=== PATIENT | female | born 1950 | race Caucasian/White ===

== ENCOUNTER 2019-07-22 08:51 | Emergency (ER) | payer OTHER ==
[2019-07-22] MEDS ORDERED: KETOROLAC 60 MG/2 ML INJ IM ONE (09:05)
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
[2019-07-22 09:41] VITALS: BP 130/59
--- NOTE | 2019-07-22 10:57 | Magnetic Resonance Report ---
MRI CERVICAL SPINE WITHOUT CONTRAST INDICATION / CLINICAL INFORMATION: Neck pain and tingling in right thumb, IF MF. Radiculopathy. TECHNIQUE: Multisequence, multiplanar images of the cervical spine were obtained. COMPARISON: None available. FINDINGS: CRANIOCERVICAL JUNCTION:No significant abnormality. ALIGNMENT: There is straightening of the normal lordosis. No subluxation. VERTEBRAE:Normal marrow signal and vertebral body height for age. DISCS: There is diffuse disc desiccation and narrowing throughout the cervical region. Partial congen ital fusion of C5-6 is also noted. FACET JOINTS: Mild diffuse facet arthropathy. Susceptibility artifact is identified overlying the fac et joints from the level of C4-5 to C6-7 which probably represents posterior fusion changes. Correlat e with history. VISUALIZED SPINAL CORD: No significant abnormality. [id number] ANALYSIS: Atlantoaxial joint: Moderate osteoarthritic changes. C2-3: No significant disc abnormality, spinal canal stenosis, or neural foraminal stenosis. C3-4: A moderate to large central broad-based disc protrusion is identified which abuts the anterior surface of the spinal cord. This results in mild central canal narrowing measuring 8.3 mm in AP dimen bentley. No significant neural foraminal narrowing. C4-5: No significant disc abnormality, spinal canal stenosis, or neural foraminal stenosis. C5-6: No significant disc abnormality, spinal canal stenosis, or neural foraminal stenosis. C6-7: No significant disc abnormality, spinal canal stenosis, or neural foraminal stenosis. C7-T1: No significant disc abnormality, spinal canal stenosis, or neural foraminal stenosis. An appro ximate 5 mm synovial cyst projects anteriorly from the left facet joint. The clinical significance of this is unclear. A small right paracentral disc protrusion is identified at T1-2 which is partially imaged on this exa m. PARASPINAL SOFT TISSUES: No significant abnormality. ADDITIONAL FINDINGS: None. IMPRESSION: Moderate multilevel cervical spondylosis is evident. No evidence for acute bony injury or malalignmen t. 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 Moderate to large central disc bulge is identified at C3-4 resulting in mild central canal narrowing. Signer Name: Armaan Lr Jr, MD Signed: 07/22/2019 10:53 AM Workstation Name: [id number]
== END 2019-07-22 11:30 | disposition home or self-care (01) ==
LOC: ED 08:51
DX: S16.1XXA Strain of muscle, fascia and tendon at neck level, initial encounter (principal); M54.12 Radiculopathy, cervical region; Z79.899 Other long term (current) drug therapy; V49.49XA Driver injured in collision with other motor vehicles in traffic accident, initial encounter; Y93.89 Activity, other specified; Y92.410 Unspecified street and highway as the place of occurrence of the external cause; Y99.8 Other external cause status
CPT/HCPCS: 72141; 96372; 99284; J1885